=== PATIENT | male | born 1935 | race Caucasian/White ===

== ENCOUNTER 2017-06-29 14:00 | Outpatient (CLI) | payer MEDICARE, OTHER ==
--- NOTE | 2017-06-30 00:08 | MRI Report ---
EXAM: RIGHT KNEE MRI WITHOUT CONTRAST EXAM DATE: 06/29/2017 03:07 PM. CLINICAL HISTORY: Pain in unspecified knee. COMPARISON: Right knee 4 views 05/10/2017.. TECHNIQUE: Multiplanar, multisequence T1-weighted and fluid-sensitive sequences of the knee without c ontrast. Other: None. FINDINGS: Bones: Subcortical degenerative cysts mid lateral tibial plateau with reactive marrow edema. Articular Cartilage: Severe chondromalacia medial patellar facet. Moderate chondromalacia lateral pat ellar facet. Moderate chondromalacia trochlear groove. Severe chondromalacia medial tibiofemoral comp artment. Medial Meniscus: Postsurgical diminutive anterior horn and body medial meniscus. Horizontal increased near fluid signal posterior horn medial meniscus suspicious for a re-tear. Truncation posterior horn medial meniscus free edge. Lateral Meniscus: Small free edge radial tear lateral meniscus body. Cruciate Ligaments: The anterior and posterior cruciate ligaments are intact. Collateral Ligaments: The medial collateral and lateral collateral ligamentous structures are intact. Tendons: The quadriceps, patellar, semimembranosus, and popliteus tendons are unremarkable. Musculature: No edema or fatty atrophy. Other: Small fluid collection patellofemoral compartment. No popliteal cyst. No loose bodies. The me dial and lateral retinacula are intact. The subcutaneous tissues and fat pads are unremarkable. IMPRESSION: 1. Possible re-tear of posterior horn medial meniscus. 2. Severe chondromalacia medial tibiofemoral compartment. 3. Small free edge radial tear lateral meniscus body. 4. Severe chondromalacia lateral patellar facet. [facility] MUSCULOSKELETAL RADIOLOGY SECTION Referring Provider Line: [phone] SITE ID: [id number]
== END 2017-06-29 14:01 | disposition home or self-care (01) ==
LOC: DI 14:00
PROVIDERS: ATTEND Orthopaedic Surgery
DX: M94.261 Chondromalacia, right knee (principal); S83.281A Other tear of lateral meniscus, current injury, right knee, initial encounter

== ENCOUNTER 2018-10-18 07:12 | Day surgery (SDC) | payer MEDICARE, OTHER ==
[2018-10-18] MEDS ORDERED: LACTATED RINGERS 1,000 ML IV ONE (07:39)
[2018-10-18] MEDS ORDERED: MIDAZOLAM 2 MG/2 ML VIAL IVP ONE (09:05)
[2018-10-18] MEDS ORDERED: fentaNYL 100 MCG/2 ML VIAL IVP ONE (09:05)
[2018-10-18 10:00] VITALS: BP 113/71
== END 2018-10-18 07:13 | disposition home or self-care (01) ==
LOC: SDS 07:12
PROVIDERS: ATTEND Surgery
PROC: 0DJD8ZZ Inspection of Lower Intestinal Tract, Via Natural or Artificial Opening Endoscopic (ICD-10-PCS; principal; 2018-10-18 09:00)
DX: Z12.11 Encounter for screening for malignant neoplasm of colon (principal); K57.30 Diverticulosis of large intestine without perforation or abscess without bleeding; K64.8 Other hemorrhoids; I10 Essential (primary) hypertension; Z86.010 Personal history of colon polyps; Z80.3 Family history of malignant neoplasm of breast; Z87.891 Personal history of nicotine dependence; Z79.899 Other long term (current) drug therapy
CPT/HCPCS: G0105; J7120

== ENCOUNTER 2020-02-16 10:55 | Outpatient (CLI) | payer MEDICARE, OTHER ==
--- NOTE | 2020-02-16 19:31 | Ultrasound Report ---
PROCEDURE: Abdomen Limited INDICATIONS: RUQ PAIN TECHNIQUE: Real-time scanning was performed of the abdominal and retroperitoneal organs, with image documentatio n. COMPARISON: CT dated 02/26/2015. FINDINGS: Liver: The liver demonstrates diffusely increased and coarsened echotexture without focal abnormalit ies which is consistent with chronic hepatocellular disease/hepatic steatosis. Gallbladder: Gallbladder is normal in appearance without gallstones, gallbladder wall thickening, or pericholecystic fluid. Negative sonographic Persaud's sign. Biliary ducts: Intrahepatic bile ducts are non-dilated. Extrahepatic bile duct caliber measures 6 m m. Normal is 6-7 mm or less in diameter, or 10 mm or less post-cholecystectomy. Pancreas: Visualized portions of the pancreas are sonographically normal. Kidneys: Right kidney is normal in size and echotexture. Right kidney measures 9.7 cm long. No hydro nephrosis or nephrolithiasis. No solid masses. Small right renal cysts are noted. One is noted in th e anterior lateral aspect of the midpole measuring 1.1 x 1.0 x 1.0 cm. The second is noted in the lat eral posterior aspect of the midpole measuring 1.1 x 1.2 x 1.5 cm. IVC: Intrahepatic inferior vena cava is patent. Miscellaneous: No free abdominal fluid. IMPRESSION: #1. Diffusely echogenic and coarsened hepatic echotexture without focal intrahepatic lesions compatib le with hepatic steatosis versus chronic hepatocellular disease. 2. No evidence for cholelithiasis or acute cholecystitis. 3. Right kidney without obstructive uropathy. Right renal cysts. Reviewed by: Jonas Hubbard MD on 02/16/2020 6:30 PM [facility] Approved by: Jonas Hubbard MD on 02/16/2020 6:30 PM [facility] Station ID: [id number]
== END 2020-02-16 10:56 | disposition home or self-care (01) ==
LOC: DI 10:55
PROVIDERS: ATTEND Internal Medicine
DX: R10.11 Right upper quadrant pain (principal); N28.1 Cyst of kidney, acquired
CPT/HCPCS: 76705

== ENCOUNTER 2020-02-18 15:41 | Outpatient (CLI) | payer MEDICARE, OTHER ==
--- NOTE | 2020-02-18 17:04 | XRAY Report ---
PROCEDURE: Chest 2 View X-Ray INDICATIONS: BILAT RIB PAIN, CHEST WALL PAIN TECHNIQUE: 2 view(s) of the chest. COMPARISON: None. FINDINGS: Surgical changes and devices: None. Lungs and pleura: No pleural effusions or pneumothorax. Lungs are clear. Mediastinum: Mediastinal contours are normal. Heart size is normal. Bones and chest wall: No suspicious bony abnormalities. Soft tissues appear unremarkable. IMPRESSION: No pneumonia found, no chest wall abnormality identified. Source of bilateral rib pain i s not seen. Reviewed by: Ángel Albrecht MD on 02/18/2020 5:03 PM PST Approved by: Ángel Albrecht MD on 02/18/2020 5:03 PM PST Station ID: [id number]
== END 2020-02-18 15:42 | disposition home or self-care (01) ==
LOC: DI 15:41
PROVIDERS: ATTEND Internal Medicine
DX: R07.81 Pleurodynia (principal); R07.89 Other chest pain
CPT/HCPCS: 71046

== ENCOUNTER 2020-02-21 13:30 | Outpatient (CLI) | payer MEDICARE, OTHER ==
[2020-02-21 14:01] LABS: CREATININE 1.1 mg/dL (0.6-1.2)
[2020-02-21] MEDS ORDERED: IOVERSOL 320 50 ML VIAL ONE (14:14)
[2020-02-21] MEDS ORDERED: IOVERSOL 320 100 ML VIAL IVP ONE ×2 (14:14→16:51)
--- NOTE | 2020-02-21 16:46 | CT Report ---
PROCEDURE: Abdomen/Pelvis W INDICATIONS: R07.89 SEVERE CHEST WALL PAIN, [id number] CONTRAST: IV CONTRAST: Optiray 320 ml: 100 PO CONTRAST: Optiray 320 ml50 TECHNIQUE: After the administration of oral and IV contrast, 5 mm thick sections acquired from the diaphragms to the symphysis. 5 mm thick coronal and sagittal reformats were acquired. For radiation dose reducti on, the following was used: automated exposure control, adjustment of mA and/or kV according to kaci ent size. COMPARISON: Ultrasound abdomen 02/16/2020, CT abdomen pelvis 02/26/2015 FINDINGS: Image quality: Excellent. ABDOMEN: Lung bases: Lung bases are clear. Heart size is normal. Solid organs: Liver and spleen are normal in size and enhancement. Gallbladder is unremarkable Enrique iary system is non dilated. Pancreas enhances normally. No adrenal nodules. Kidneys demonstrate no rmal size and enhancement, without hydronephrosis. Right renal cyst is noted. Peritoneum and bowel: Bowel loops demonstrate normal wall thickness and caliber. No free fluid or a ir. Colonic diverticula are present without associated inflammatory change. Moderate colonic stool pa rticularly within the right and transverse colon. Appendix is normal. Nodes and vessels: No retroperitoneal or mesenteric adenopathy by size criteria. Aorta and inferior vena cava are normal in size. Miscellaneous: No ventral hernias. PELVIS: Genitourinary: Bladder wall thickness is normal. Miscellaneous: Fat-containing inguinal hernias are present.. Bones: No suspicious bony lesions. No vertebral body compression fractures. IMPRESSION: 1. Moderate stool particularly within the right and transverse colon consistent with constipation. 2. Diverticulosis. Reviewed by: Cora Rosales MD on 02/21/2020 4:45 PM PST Approved by: Cora Rosales MD on 02/21/2020 4:45 PM PST Station ID: [id number]
[2020-02-21] MEDS ORDERED: IOVERSOL 320 50 ML VIAL PO ONE (16:51)
--- NOTE | 2020-02-21 17:28 | CT Report ---
PROCEDURE: CHEST W INDICATIONS: Chest Wall pain CONTRAST: IV CONTRAST: Optiray 320 ml: 100 PO CONTRAST: Optiray 320 ml50 TECHNIQUE: After the administration of intravenous contrast, 5 mm thick sections acquired from the pulmonary api sanford to the posterior costophrenic angles. 7 mm thick coronal MIP reformats were acquired. For radia tion dose reduction, the following was used: automated exposure control, adjustment of mA and/or kV according to patient size. COMPARISON: None. FINDINGS: Image quality: Excellent. Lungs and pleura: There is a 1.1 cm pulmonary nodule in the left lower lobe on image 195/4. There are no prior studies available that include this location. No other pulmonary nodules are identified. Th e lungs are clear. No acute air space opacities. No pleural effusions or pneumothorax. Central and peripheral airways are patent and normal in caliber. Mediastinum: Heart size is normal. No pericardial effusion. Coronary artery calcifications. No med iastinal or hilar adenopathy by size criteria. Thoracic aorta and central pulmonary arteries are nor mal in size. Esophagus is normal in caliber. No hiatal hernia. Bones and chest wall: No suspicious bony lesions. No vertebral body compression fractures. No axil louann or supraclavicular adenopathy by size criteria. Thyroid gland is unremarkable. Abdomen: Visualized upper abdominal solid organs appear normal. Upper abdominal bowel loops are nor mal in caliber. IMPRESSION: 1. 1.1 cm left lower lobe pulmonary nodule, of uncertain etiology. 2. No evidence acute pulmonary process. Comment: If possible, comparison with prior studies is recommended to document whether this is a stab le benign finding. If prior imaging is not obtainable, As per the Fleischner Society criteria,If the patient is at low risk for lung cancer follow up CT at 3,9, and 24 months,dynamic contrast-enhanced C T. PET, and /or biopsy. If the patient has risk factors for lung cancer, recommendations are the same . Reviewed by: Nikhil Sanchez MD on 02/21/2020 5:27 PM PST Approved by: Nikhil Sanchez MD on 02/21/2020 5:27 PM PST Station ID: [id number]
== END 2020-02-21 13:31 | disposition home or self-care (01) ==
LOC: DI 13:30
PROVIDERS: ATTEND Internal Medicine
DX: R91.1 Solitary pulmonary nodule (principal); K57.30 Diverticulosis of large intestine without perforation or abscess without bleeding
CPT/HCPCS: 36415; 71260; 74177; 82565; Q9967

== ENCOUNTER 2020-06-08 12:19 | Outpatient (CLI) | payer MEDICARE, OTHER ==
[2020-06-08] MEDS ORDERED: IOVERSOL 320 100 ML VIAL IVP ONE ×2 (12:42→14:12)
--- NOTE | 2020-06-08 16:40 | CT Report ---
PROCEDURE: CHEST W INDICATIONS: PULMONARY NODULE CONTRAST: IV CONTRAST: Optiray 320 ml: 100 PO CONTRAST: *NO PO CONTRAST TECHNIQUE: After the administration of intravenous contrast, 5 mm thick sections acquired from the pulmonary api sanford to the posterior costophrenic angles. 7 mm thick coronal MIP reformats were acquired. For radia tion dose reduction, the following was used: automated exposure control, adjustment of mA and/or kV according to patient size. COMPARISON: 02/21/2020 FINDINGS: Image quality: Excellent. Lungs and pleura: 1.1 cm ovoid pulmonary nodule in the posterior left lower lobe is redemonstrated. Smooth margins and no visible spiculation. Rounded subpleural calcification measuring 3 mm present in the posterior lateral right lung apex. There are no new suspicious lung nodules. No acute air space opacities. No pleural effusions or pneumothorax. Central and peripheral airways are patent and norm al in caliber. Mediastinum: Heart size is normal. Mild coronary artery calcification. No pericardial effusion. No mediastinal or hilar adenopathy by size criteria. Thoracic aorta and central pulmonary arteries are normal in size. Esophagus is normal in caliber. No hiatal hernia. Bones and chest wall: No suspicious bony lesions. No vertebral body compression fractures. No axil louann or supraclavicular adenopathy by size criteria. Thyroid gland is normal.. Abdomen: Visualized upper abdominal solid organs appear normal. Upper abdominal bowel loops are nor mal in caliber. IMPRESSION: 1. Stable 1.1 cm left lower lobe lung nodule without significant change since the prior study. Follow -up recommended in 6 months. 2. Mild coronary artery calcification. Reviewed by: Tena Rajput MD on 06/08/2020 4:39 PM PST Approved by: Tena Rajput MD on 06/08/2020 4:39 PM PST Station ID: [id number]
== END 2020-06-08 12:20 | disposition home or self-care (01) ==
LOC: DI 12:19
PROVIDERS: ATTEND Internal Medicine
DX: R91.1 Solitary pulmonary nodule (principal); I25.10 Atherosclerotic heart disease of native coronary artery without angina pectoris
CPT/HCPCS: 71260; Q9967

== ENCOUNTER 2020-10-26 14:41 | Outpatient (CLI) | payer MEDICARE, OTHER | END 2020-10-26 14:42 | disposition home or self-care (01) | LOC: LAB 14:41 | PROVIDERS: ATTEND Specialist | DX: R39.9 Unspecified symptoms and signs involving the genitourinary system (principal) | CPT/HCPCS: 36415; 84153 ==

== ENCOUNTER 2021-03-16 10:02 | Outpatient (CLI) | payer MEDICARE, OTHER ==
[2021-03-16 10:48] LABS: CREATININE 1.1 mg/dL (0.6-1.2)
[2021-03-16] MEDS ORDERED: IOPAMIDOL-300 100 ML VIAL ONE (10:57)
[2021-03-16] MEDS ORDERED: IOPAMIDOL-300 100 ML VIAL IVP ONE (11:06)
--- NOTE | 2021-03-16 11:48 | CT Report ---
PROCEDURE: CHEST W INDICATIONS: PULMONARY NODULE CONTRAST: IV CONTRAST: Optiray 320 ml: 100 PO CONTRAST: *NO PO CONTRAST TECHNIQUE: After the administration of intravenous contrast, 1 mm axial images were acquired from the pulmonary apices through the posterior costophrenic angles. Axial 5 mm soft tissue kernel reconstructions were performed as well as 8 mm axial MIP and coronal and sagittal 5 mm reformations. For radiation dose reduction, the following was used: automated exposure control, adjustment of mA and/or kV according to patient size. COMPARISON: 02/21/2020, 06/08/2020. FINDINGS: Image quality: Excellent. Lungs and pleura: Stable 1.1 cm pulmonary nodule, left lower lobe. No acute air space opacities. No pleural effusions or pneumothorax. Central and peripheral airways are patent and normal in caliber. Mediastinum: Heart size is normal. No pericardial effusion. Mild coronary artery calcifications. No mediastinal or hilar adenopathy by size criteria. Thoracic aorta and central pulmonary arteries are normal in size. Esophagus is normal in caliber. No hiatal hernia. Bones and chest wall: No suspicious bony lesions. No vertebral body compression fractures. No axil louann or supraclavicular adenopathy by size criteria. The thyroid is normal in size and there are no incidental findings.. Abdomen: Visualized upper abdominal solid organs appear normal. Upper abdominal bowel loops are nor mal in caliber. IMPRESSION: 1. A 1.1 cm left lower lobe pulmonary nodule has been stable findings almost 13 months. Comment: Consider follow-up CT in 12 months. CLINICAL RECOMMENDATION STATEMENTS: In patients <35 years with an ITN detected on CT, MRI, or extrathyroidal ultrasound, the Committee re commends further evaluation with dedicated thyroid ultrasound if the nodule is "e1 cm and has no susp icious imaging features, and if the patient has normal life expectancy. In patients "e35 years with an ITN detected on CT, MRI, or extrathyroidal ultrasound, the Committee r ecommends further evaluation with dedicated thyroid ultrasound if the nodule is "e1.5 cm and has no s uspicious imaging features, and if the patient has normal life expectancy. (ACR, 2014) Reviewed by: Nikhil Sanchez MD on 03/16/2021 11:46 AM PST Approved by: Nikhil Sanchez MD on 03/16/2021 11:46 AM PST Station ID: [id number]
== END 2021-03-16 10:03 | disposition home or self-care (01) ==
LOC: DI 10:02
PROVIDERS: ATTEND Internal Medicine
DX: R91.1 Solitary pulmonary nodule (principal); Z79.899 Other long term (current) drug therapy
CPT/HCPCS: 36415; 71260; 82565; Q9967

== ENCOUNTER 2021-06-01 07:13 | Outpatient (CLI) | payer MEDICARE, OTHER ==
--- NOTE | 2021-06-01 09:13 | MRI Report ---
PROCEDURE: Knee LT W/O INDICATIONS: PERSISTENT L KNEE PAIN TECHNIQUE: Noncontrast sagittal PD fast spin echo and T2 fast spin echo with fat saturation, sagittal 3-D gradie nt sequence with fat saturation; coronal T1 spin echo and PD fast spin echo with fat saturation, and axial PD fast spin echo with fat saturation through the knee. COMPARISON: None. Findings: Medial meniscus: Surface signal in the posterior horn, compatible with tear. Lateral meniscus: No surface communication/tear. LIGAMENTS/TENDONS: Patellar tendon: Intact. Distal quadriceps tendon: Intact. Hoffa's fat pad: No evidence of fibrosis or mass. PCL: Intact. ACL: Intact. Lateral collateral ligament complex: No significant abnormality. Posterolateral corner: No significant abnormality. Medial collateral ligament: No significant abnormality.. MARROW: Patchy T2 hyperintense signal within the lateral aspect of the trochlea and medial patella. CARTILAGE: Signal heterogeneity and thinning of the tricompartment hyaline cartilage. Muscles: No significant edema or atrophy. Joint effusion/Gordon's cyst: Small to moderate joint effusion. No substantial Gordon's cyst. Subcutaneous soft tissues: Prepatellar soft tissue edema. IMPRESSION: 1. Posterior horn, medial meniscal tear. 2. Edema in the lateral trochlea and medial patella, which may reflect transient subluxation/dislocat ion. The medial retinaculum appears intact. 3. Small to moderate joint effusion. 4. Prepatellar soft tissue edema. Reviewed by: Kiko Walter MD on 06/01/2021 9:11 AM PST Approved by: Kiko Walter MD on 06/01/2021 9:11 AM PST Station ID: [id number]
== END 2021-06-01 07:14 | disposition home or self-care (01) ==
LOC: DI 07:13
PROVIDERS: ATTEND Internal Medicine
DX: S83.242A Other tear of medial meniscus, current injury, left knee, initial encounter (principal); R60.0 Localized edema; M25.462 Effusion, left knee

== ENCOUNTER 2021-06-21 08:00 | Outpatient (CLI) | payer MEDICARE, OTHER ==
--- NOTE | 2021-06-21 16:34 | XRAY Report ---
PROCEDURE: Knee 4 View LT INDICATIONS: KNEE PAIN TECHNIQUE: 4 views of the left knee(s) were acquired. COMPARISON: None. FINDINGS: Mild joint space narrowing in the femorotibial and patellofemoral compartments with small marginal os teophytes. No acute or suspicious osseous lesion. No knee joint effusion. 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 Reviewed by: Santosh Orellana MD on 06/21/2021 4:32 PM PDT Approved by: Santosh Orellana MD on 06/21/2021 4:32 PM PDT Station ID: [id number]
== END 2021-06-21 23:59 ==
LOC: DI.WOS 08:00
PROVIDERS: ATTEND Physician Assistant
DX: M17.12 Unilateral primary osteoarthritis, left knee (principal)

== ENCOUNTER 2021-11-09 08:00 | Outpatient (CLI) | payer MEDICARE, OTHER ==
[2021-11-09 17:21] LABS: RAPID STREP SCREEN Negative (Negative)
== END 2021-11-09 23:59 | disposition home or self-care (01) ==
LOC: LAB.R 08:00
PROVIDERS: ATTEND Internal Medicine
DX: J02.9 Acute pharyngitis, unspecified (principal)
CPT/HCPCS: 87070; 87430

== ENCOUNTER 2022-01-31 14:37 | Outpatient (CLI) | payer MEDICARE, OTHER | END 2022-01-31 14:38 | disposition home or self-care (01) | LOC: LAB 14:37 | PROVIDERS: ATTEND Specialist | DX: R97.20 Elevated prostate specific antigen [PSA] (principal) | CPT/HCPCS: 36415; 84153 ==

== ENCOUNTER 2022-02-24 08:47 | Outpatient (CLI) | payer MEDICARE, OTHER ==
--- NOTE | 2022-02-24 11:29 | Ultrasound Report ---
PROCEDURE: Ultrasound scrotum INDICATIONS: SPERMATOCELE TECHNIQUE: Real-time scanning was performed of the scrotum and testicles, with image documentation. Color and p ulse Doppler interrogation was performed of both testicles. COMPARISON: 09/24/2019 FINDINGS: Right: Testicle is normal in size at 4.9 x 2.1 x 3.9 cm. Tubular ectasia of the rete testes noted, s imilar prior exam. Echotexture is otherwise homogeneous. Minimal scrotal wall thickening. No hydrocel e. Epididymis unremarkable. Varicocele noted. Left: Testicle is normal in size at 4.4 x 2.0 x 3.8 cm respectively. Tubular ectasia of the rete ghanshyam ghanshyam again noted, similar to the prior exam. Scrotal wall appears thickened, and there is no hydrocele present. Left epididymis is larger replaced by a spermatocele measuring 4.7 x 3.5 x 3.5 cm, previous ly 4.2 x 4.0 x 5.5 cm. Small varicocele noted as well. Doppler: Color and pulse Doppler demonstrate normal and symmetric arterial flow in both testicles. IMPRESSION: 1. Left-sided spermatocele is slightly smaller than the prior exam. 2. 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 Mild scrotal wall thickening and small bilateral varicoceles Reviewed by: Frank Laguerre MD on 02/24/2022 10:28 AM [facility] Approved by: Frank Laguerre MD on 02/24/2022 10:28 AM [facility] Station ID: [id number]
== END 2022-02-24 08:48 | disposition home or self-care (01) ==
LOC: DI 08:47
PROVIDERS: ATTEND Specialist
DX: N43.41 Spermatocele of epididymis, single (principal); I86.1 Scrotal varices

== ENCOUNTER 2022-06-21 08:12 | Outpatient (CLI) | payer MEDICARE, OTHER ==
[2022-06-21 08:28] LABS: BASOPHILS % (AUTO) 0.4 %; EOSINOPHILS # (AUTO) 0.2 10^3/uL (0.0-0.7); EOSINOPHILS % (AUTO) 2.9 %; HCT - HEMATOCRIT 43.2 % (42.0-52.0); HGB - HEMOGLOBIN 14.4 g/dL (14.0-18.0); LYMPHOCYTES # (AUTO) 3.1 10^3/uL (1.5-3.5); LYMPHOCYTES % (AUTO) 39.1 %; MEAN CORPUSCULAR HEMOGLOBIN 30.6 pg (27.0-31.0); MEAN CORPUSCULAR HGB CONC 33.3 g/dL (32.0-36.0); MEAN CORPUSCULAR VOLUME 91.9 fL (80.0-94.0); MEAN PLATELET VOLUME 8.8 fL (7.4-11.4); MONOCYTES # (AUTO) 0.8 10^3/uL (0.0-1.0); NEUTROPHILS # (AUTO) 3.7 10^3/uL (1.5-6.6); NEUTROPHILS % (AUTO) 47.3 %; PLT - PLATELET COUNT 224 10^3/uL (130-450); RED CELL DISTRIBUTION WIDTH 12.5 % (12.0-15.0); WHITE BLOOD COUNT 7.8 x10^3/uL (4.8-10.8)
[2022-06-21 08:56] LABS: ALBUMIN 3.5 g/dL (3.2-5.5); ALBUMIN/GLOBULIN RATIO 1.2 (1.0-2.2); ALKALINE PHOSPHATASE 47 IU/L (42-121); ALT ALANINE AMINOTRANSFERASE 14 IU/L (10-60); AST ASPARTATE AMINOTRANSFERASE 17 IU/L (10-42); BILIRUBIN,TOTAL 0.9 mg/dL (0.2-1.0); BUN - BLOOD UREA NITROGEN 28 mg/dL (6-20); CALCIUM 8.5 mg/dL (8.5-10.3); CARBON DIOXIDE - CO2 28 mmol/L (21-32); CHLORIDE 101 mmol/L (101-111); CHOL/HDL RATIO 5.1 (<5.0); CHOLESTEROL 228 mg/dL; CREATININE 1.2 mg/dL (0.6-1.2); GFR - MDRD 58 (>89); GLUCOSE 103 mg/dL (70-100); HDL CHOLESTEROL 45 mg/dL; LDL CHOLESTEROL,CALCULATED 149 mg/dL; LDL/HDL RATIO 3.3 (<3.6); POTASSIUM 3.9 mmol/L (3.5-5.0); SODIUM 136 mmol/L (135-145); TOTAL PROTEIN 6.4 g/dL (6.7-8.2); TRIGLYCERIDES 172 mg/dL; VLDL CHOLESTEROL 34 mg/dL
[2022-06-21 09:24] LABS: PSA TOTAL 2.489 ng/mL (0.000-2.000)
[2022-06-23 15:47] LABS: PSA FREE 0.375 ng/mL (0.16-2.81)
== END 2022-06-21 08:13 | disposition home or self-care (01) ==
LOC: LAB 08:12
PROVIDERS: ATTEND Internal Medicine
DX: I10 Essential (primary) hypertension (principal); N40.0 Benign prostatic hyperplasia without lower urinary tract symptoms; R97.20 Elevated prostate specific antigen [PSA]; E78.5 Hyperlipidemia, unspecified; Z79.899 Other long term (current) drug therapy; G62.9 Polyneuropathy, unspecified
CPT/HCPCS: 36415; 80053; 80061; 83721; 84153; 84154; 84443; 85025

== ENCOUNTER 2022-06-22 08:23 | Outpatient (CLI) | payer MEDICARE, OTHER ==
[2022-06-22 19:54] LABS: ESTIMATED AVERAGE GLUCOSE 111 mg/dL (70-100); HEMOGLOBIN A1c% 5.5 % (4.27-6.07)
== END 2022-06-22 23:59 | disposition home or self-care (01) ==
LOC: LAB.R 08:23
PROVIDERS: ATTEND Internal Medicine
DX: R73.01 Impaired fasting glucose (principal)
CPT/HCPCS: 83036

== ENCOUNTER 2022-12-15 17:27 | Outpatient (CLI) | payer MEDICARE, OTHER ==
[2022-12-15 18:08] LABS: CREATININE 1.1 mg/dL (0.6-1.3)
--- NOTE | 2022-12-15 21:30 | CT Report ---
PROCEDURE: ABDOMEN/PELVIS W INDICATIONS: ABD PAIN CONTRAST: 100mL Optitray 320 TECHNIQUE: After the administration of oral and intravenous contrast, 5 mm thick sections acquired from the diap hragms to the symphysis. 5 mm thick coronal and sagittal reformats were acquired. For radiation dos e reduction, the following was used: automated exposure control, adjustment of mA and/or kV accordin g to patient size. COMPARISON: CT abdomen pelvis 02/21/2020 FINDINGS: Image quality: There is mild motion artifact. Lung bases: Unremarkable. Heart: Heart is normal in size. There is a small hiatal hernia. ABDOMEN: Liver: No mass lesion. Gallbladder: Within normal limits without calcified gallstones. Biliary ducts: No biliary ductal dilatation. Pancreas: Unremarkable. Spleen: Normal in size. Adrenal Glands: No adrenal nodules. Kidneys and Ureters: No hydronephrosis. There are 3 right renal cysts. Stomach and Bowel: Stomach, small bowel loops, and colon are normal in caliber and wall thickness. T he appendix is normal. There is colonic diverticulosis without acute diverticulitis. Peritoneum: No abnormal intraperitoneal fluid. No free air. Ventral Wall: No hernia. Abdominal Nodes: No retroperitoneal or mesenteric adenopathy by size criteria. Vessels: Aorta and inferior vena cava are normal in size. PELVIS: Pelvic Organs: Unremarkable. Bladder: Unremarkable. Pelvic Nodes: No enlarged lymph nodes. Miscellaneous: No inguinal hernias. Bones: Visualized osseous structures demonstrate no suspicious lesions. IMPRESSION: 1. No acute intra-abdominal abnormality. Specifically, no evidence of appendicitis. 2. Colonic diverticulosis without acute diverticulitis. Reviewed by: Beto Perrin MD on 12/15/2022 9:28 PM PDT Approved by: Beto Perrin MD on 12/15/2022 9:28 PM PDT Station ID: [id number]
[2022-12-15] MEDS ORDERED: IOVERSOL 320 100 ML VIAL IVP ONE (21:59)
== END 2022-12-15 17:28 | disposition home or self-care (01) ==
LOC: DI 17:27
PROVIDERS: ATTEND Internal Medicine
DX: R10.9 Unspecified abdominal pain (principal); Z79.899 Other long term (current) drug therapy; K57.30 Diverticulosis of large intestine without perforation or abscess without bleeding
CPT/HCPCS: 36415; 74177; 82565; Q9967

== ENCOUNTER 2023-01-17 10:14 | Outpatient (CLI) | payer MEDICARE, OTHER | END 2023-01-17 10:15 | disposition home or self-care (01) | LOC: LAB 10:14 | PROVIDERS: ATTEND Specialist | DX: R97.20 Elevated prostate specific antigen [PSA] (principal) | CPT/HCPCS: 36415; 84153 ==

== ENCOUNTER 2023-07-14 09:56 | Outpatient (CLI) | payer MEDICARE, OTHER ==
[2023-07-14 10:17] LABS: BASOPHILS % (AUTO) 0.6 %; EOSINOPHILS # (AUTO) 0.2 10^3/uL (0.0-0.7); EOSINOPHILS % (AUTO) 2.8 %; HCT - HEMATOCRIT 44.3 % (42.0-52.0); HGB - HEMOGLOBIN 14.6 g/dL (14.0-18.0); LYMPHOCYTES # (AUTO) 2.7 10^3/uL (1.5-3.5); LYMPHOCYTES % (AUTO) 37.1 %; MEAN CORPUSCULAR HEMOGLOBIN 30.5 pg (27.0-31.0); MEAN CORPUSCULAR VOLUME 92.7 fL (80.0-94.0); MONOCYTES # (AUTO) 0.6 10^3/uL (0.0-1.0); MONOCYTES % (AUTO) 8.7 %; NEUTROPHILS # (AUTO) 3.7 10^3/uL (1.5-6.6); NEUTROPHILS % (AUTO) 50.7 %; PLT - PLATELET COUNT 221 10^3/uL (130-450); RED BLOOD COUNT 4.78 10^6/uL (4.70-6.10); RED CELL DISTRIBUTION WIDTH 12.5 % (12.0-15.0); WHITE BLOOD COUNT 7.3 x10^3/uL (4.8-10.8)
[2023-07-14 10:33] LABS: ALBUMIN 3.8 g/dL (3.2-5.5); ALBUMIN/GLOBULIN RATIO 1.3 (1.0-2.2); ALKALINE PHOSPHATASE 59 IU/L (42-121); ALT ALANINE AMINOTRANSFERASE 13 IU/L (10-60); AST ASPARTATE AMINOTRANSFERASE 17 IU/L (10-42); BILIRUBIN,TOTAL 0.7 mg/dL (0.2-1.0); BUN - BLOOD UREA NITROGEN 30 mg/dL (6-20); CALCIUM 9.4 mg/dL (8.5-10.3); CARBON DIOXIDE - CO2 30 mmol/L (21-32); CHLORIDE 104 mmol/L (101-111); CHOL/HDL RATIO 4.8 (<5.0); CHOLESTEROL 233 mg/dL; CREATININE 1.2 mg/dL (0.6-1.3); GFR - MDRD 57 (>89); GLUCOSE 98 mg/dL (74-104); HDL CHOLESTEROL 49 mg/dL; LDL CHOLESTEROL,CALCULATED 148 mg/dL; POTASSIUM 4.2 mmol/L (3.5-4.5); SODIUM 137 mmol/L (135-145); TOTAL PROTEIN 6.8 g/dL (6.4-8.9); TRIGLYCERIDES 182 mg/dL (48-352); VLDL CHOLESTEROL 36 mg/dL
[2023-07-14 10:47] LABS: THYROID STIMULATING HORMONE 2.23 uIU/mL (0.34-5.60)
[2023-07-14 11:12] LABS: PSA TOTAL 6.223 ng/mL (0.000-2.000)
[2023-07-14 11:58] LABS: ESTIMATED AVERAGE GLUCOSE 105 mg/dL (70-100); HEMOGLOBIN A1c% 5.3 % (4.27-6.07)
== END 2023-07-14 09:57 | disposition home or self-care (01) ==
LOC: LAB 09:56
PROVIDERS: ATTEND Internal Medicine
DX: Z00.00 Encounter for general adult medical examination without abnormal findings (principal); J30.9 Allergic rhinitis, unspecified; C44.91 Basal cell carcinoma of skin, unspecified; N40.0 Benign prostatic hyperplasia without lower urinary tract symptoms; R97.20 Elevated prostate specific antigen [PSA]; K21.9 Gastro-esophageal reflux disease without esophagitis; Z86.010 Personal history of colon polyps; E78.5 Hyperlipidemia, unspecified; I10 Essential (primary) hypertension; R73.01 Impaired fasting glucose; I44.7 Left bundle-branch block, unspecified; G47.33 Obstructive sleep apnea (adult) (pediatric); M19.90 Unspecified osteoarthritis, unspecified site; R91.1 Solitary pulmonary nodule; C80.1 Malignant (primary) neoplasm, unspecified; G62.9 Polyneuropathy, unspecified
CPT/HCPCS: 36415; 80053; 80061; 82306; 82607; 82746; 83036; 83721; 84153; 84154; 84443; 85025